=== PATIENT | female | born 1950 | race Caucasian/White ===

== ENCOUNTER 2018-09-11 21:45 | Observation (INO) | payer OTHER ==
[2018-09-11 23:14] VITALS: BMI 17.9
[2018-09-12] MEDS ORDERED: ACETAMINOPHEN 325 MG TABLET (FP) PO ONE (00:48)
[2018-09-12] MEDS ORDERED: rOPINIRole HCL 2 MG TABLET (FP) PO ONE (01:02)
[2018-09-12] MEDS ORDERED: rOPINIRole HCL 1 MG TABLET (FP) PO ONE (01:30)
--- NOTE | 2018-09-12 01:48 | PDOC ---
History of Present Illness - General Chief Complaint: Back Pain Stated Complaint: LOWER BACK PAIN Time Seen by Provider: 09/12/18 00:13 History Source: Patient Exam Limitations: No Limitations Past History - Past Medical History Allergies/Adverse Reactions: Allergies Allergy/AdvReac Type Severity Reaction Status Date / Time omeprazole AdvReac Verified 09/11/18 23:12 Penicillins AdvReac Verified 09/11/18 23:12 Home Medications: Ambulatory Orders Cyclobenzaprine HCl [Flexeril -] 10 mg PO QID 03/19/14 Dexlansoprazole [Dexilant -] 60 mg PO DAILY 03/19/14 Furosemide [Lasix -] 20 mg PO DAILY 03/19/14 Levothyroxine [Synthroid -] 75 mcg PO DAILY 03/19/14 Lorazepam [Ativan] 1 mg PO QID 03/19/14 Oxycodone HCl/Acetaminophen [Percocet 10-650 mg Tablet] 1 - 2 tab PO Q6H Ropinirole HCl [Requip Xl] 8 mg PO DAILY 03/19/14 Sertraline HCl [Zoloft] 200 mg PO DAILY 03/19/14 Unobtainable Home Med List 0 dose .ROUTE UTDICT 04/17/14 Bone Dexa 04/21/14 Ultrasound Of Kidneys 04/21/14 Vitamin D Level 04/21/14 Docusate Sodium [Colace -] 100 mg PO BID PRN #30 capsule 04/23/14 Heparin - 5,000 unit SQ BID 14 Days ml 04/23/14 Lidocaine 5% Patch [Lidoderm -] 1 patch TP DAILY #30 patch 04/23/14 Ranitidine [Zantac -] 150 mg PO BID #30 tablet 04/23/14 Sennosides [Senna -] 1 tab PO HS PRN #30 tablet 04/23/14 COPD: Yes GI Disorders: Yes (GERD) Thyroid Disease: Yes (HYPOTHYROIDISM) - Surgical History Orthopedic Surgery: Yes (L. Shoulder) - Suicide/Smoking/Psychosocial Hx Smoking Status: Yes Smoking History: Never smoked Have you smoked in the past 12 months: No Number of Cigarettes Smoked Daily: 20 Information on smoking cessation initiated: No 'Breaking Loose' booklet given: 04/17/14 Hx Alcohol Use: No Drug/Substance Use Hx: No *Physical Exam - Vital Signs Last Vital Signs Temp Pulse Resp BP Pulse Ox 98.6 F 62 16 158/79 93 L 09/11/18 22:00 09/11/18 22:00 09/11/18 22:00 09/11/18 22:00 09/11/18 22:00 - Physical Exam General Appearance: No: Apparent Distress HEENT: positive: KAYLENE, Other (No evidence of head trauma) Neck: negative: Rigid, Tender lateral, Tender midline Respiratory/Chest: positive: Lungs Clear. negative: Respiratory Distress Cardiovascular: positive: Regular Rate Gastrointestinal/Abdominal: positive: Soft. negative: Tender Musculoskeletal: negative: Muscle Spasm, Vertebral Tenderness Integumentary: positive: Normal Color Neurologic: positive: Fully Oriented, Alert, Normal Mood/Affect Moderate Sedation - Procedure Monitoring Vital Signs: Procedure Monitoring Vital Signs Temperature 98.6 F 09/11/18 22:00 Pulse Rate 62 09/11/18 22:00 Respiratory Rate 16 09/11/18 22:00 Blood Pressure 158/79 09/11/18 22:00 O2 Sat by Pulse Oximetry (%) 93 L 09/11/18 22:00 ED Treatment Course - RADIOLOGY Radiology Studies Ordered: Category Date Time Status HEAD CT WITHOUT CONTRAST [CT] Stat CT Scan 09/12/18 01:00 Taken PELVIS [RAD] Stat Radiology 09/12/18 00:57 Taken Medical Decision Making - Medical Decision Making 67 y/o F hx of hypothyroidism, COPD, MS, GERD, anxiety, depression, RA, osteoporosis, restless leg syndrome from [facility] , able to get around with roller and wheelchair presents s/p fall last night. Patient was just placed in independent living facility yesterday. Mentions she was walking around with her roller a lot, causing her feel tired. States while waiting in line for meds, because she was so tired, she fell back, predominantly landing on her tailbone. +headstrike as well. Denies LOC. Denies sob, cp, abd pain, n/v, dizziness. No evidence of trauma on exam, other than old abrasion to R knee CT head: IMPRESSION: 1. 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 Patient has fallen twice while in independent living facility and unsure if she can stay there (mentions the facility also does not want her there) Prior to this, patient was living in apartment States she has no family nearby to assist her either Will admit for further management/social work involvement 09/12/18 01:43 *DC/Admit/Observation/Transfer Diagnosis at time of Disposition: Fall Qualifiers: Encounter type: initial encounter Qualified Code(s): W19.XXXA - Unspecified fall, initial encounter - Discharge Dispostion Condition at time of disposition: Stable Decision to Admit order: Yes - Referrals - Patient Instructions - Post Discharge Activity
[2018-09-12] MEDS ORDERED: ACETAMINOPHEN 325 MG TABLET (FP) ONE ×2 (01:49→03:24)
--- NOTE | 2018-09-12 03:31 | PN ---
Teaching Attending Note Name of Resident: Regulo Palacios ATTENDING PHYSICIAN STATEMENT I saw and evaluated the patient. I reviewed the resident's note and discussed the case with the resident. I agree with the resident's findings and plan as documented. SUBJECTIVE: Patient is a 67 year old woman with PMH of hypothyroidism, COPD, MS, GERD, anxiety, penicillin allergy, depression, RA, left hip fracture, osteoporosis and restless leg syndrome who presents after a fall. She is from [facility] and is able to get around with roller and wheelchair. Patient was just placed in independent living facility yesterday. Mentions she was walking around with her roller a lot, causing her feel tired. States while waiting in line for meds, because she was so tired, she fell back, predominantly landing on her tailbone and hit her head as well. Denies LOC, SOB , chest pain, dizziness, nausea or vomiting. OBJECTIVE: Alert, cachectic and frail Vital Signs Period Temp Pulse Resp BP Sys/Cohen Pulse Ox Last 24 Hr 98.6 F 62 16 158/79 93 HEENT: No Jaundice, eye redness or discharge, PERRLA, EOMI. Normocephalic, atraumatic. External ears are normal and hearing is grossly intact. No nasal discharge. Neck: Supple, nontender. No palpable adenopathy or thyromegaly. No JVD Chest: Good effort. Clear to auscultation and percussion. Heart: Regular. No S3, rub or murmur Abdomen: Not distended, soft, nontender and no HSM. No rebound or guarding. Normoactive bowel sounds. Ext: Peripheral pulses intact. No leg edema. Skin: Warm and dry. No petechiae, rash or ecchymosis. Neuro: Alert. Oriented x3. CN 2-12 grossly intact. Sensation grossly intact in all four extremities and DTR are symmetric. Home Medications Medication Instructions Recorded Cyclobenzaprine HCl [Flexeril -] 10 mg PO QID 03/19/14 Dexlansoprazole [Dexilant -] 60 mg PO DAILY 03/19/14 Furosemide [Lasix -] 20 mg PO DAILY 03/19/14 Levothyroxine [Synthroid -] 75 mcg PO DAILY 03/19/14 Lorazepam [Ativan] 1 mg PO QID 03/19/14 Oxycodone HCl/Acetaminophen 1 - 2 tab PO Q6H 03/19/14 [Percocet 10-650 mg Tablet] Ropinirole HCl [Requip Xl] 8 mg PO DAILY 03/19/14 Sertraline HCl [Zoloft] 200 mg PO DAILY 03/19/14 Unobtainable Home Med List 0 dose .ROUTE UTDICT 04/17/14 Bone Dexa 04/21/14 Ultrasound Of Kidneys 04/21/14 Vitamin D Level 04/21/14 Docusate Sodium [Colace -] 100 mg PO BID PRN #30 capsule 04/23/14 Heparin - 5,000 unit SQ BID 14 Days ml 04/23/14 Lidocaine 5% Patch [Lidoderm -] 1 patch TP DAILY #30 patch 04/23/14 Ranitidine [Zantac -] 150 mg PO BID #30 tablet 04/23/14 Sennosides [Senna -] 1 tab PO HS PRN #30 tablet 04/23/14 ASSESSMENT AND PLAN: 1. Recurrent falls and Weakness - No acute pathology on head CT scan and official report of hip xray is pending. Mobility and gait issues likely a consequence of her multiple comorbid problems. Needs intense Rehab and possibly will do better with at a higher level of care SNF. Will check EKG, CBC, Urinalysis, CMP and all electrolytes. 2. Undernourished and Underweight - Needs intense nutritional support - a high calorie, high protein diet with supplements. Consult documentation specialist. 3. DVT prophylaxis - Lovenox 40 mg SQ q 24 hours. 4. Advance directives - Full code
--- NOTE | 2018-09-12 04:00 | HP ---
CHIEF COMPLAINT: PCP: Kelly Fay HISTORY OF PRESENT ILLNESS: 67 yo F w/ PMH of hypothyroidism, COPD, MS, GERD, anxiety, anorexia?, penicillin allergy, depression, RA, left hip fracture, osteoporosis and restless leg syndrome who presents after a mechanical fall x2. She is from [facility] and is able to get around with roller and wheelchair. Patient was just placed in independent living facility yesterday. The first fall occurred last night while she was sleeping in her wheelchair. She woke up on the floor but does not know how she fell. Was not in any pain so she didn't report it. The second fall occurred bec she was walking around with her roller a lot, causing her feel tired. States while waiting in line for meds, because she was so tired, she fell back, predominantly landing on her tailbone and hit her head as well. Denies LOC, fevers, SOB, chest pain, abd pain, dizziness, n/v/d, urinary sxs. 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 Patient unsure if she can stay in independent living facility (mentions the facility also does not want her there) Prior to this, patient was living in apartment States she has no family nearby to assist her either ER course was notable for: (1) CT head No acute intracranial process (2)X-ray pelvis: Difficult to see well; patient had prior L hip fracture; appears unchanged from prior (3) tylenol, requip Recent Travel: PAST MEDICAL HISTORY: Neuro: Dickoff PAST SURGICAL HISTORY: Social History: Smoking: >40 years Alcohol: Drugs: marijuana in the past, denies IV use Family History: Allergies omeprazole Adverse Reaction (Verified 09/11/18 23:12) Penicillins Adverse Reaction (Verified 09/11/18 23:12) HOME MEDICATIONS: Home Medications Medication Instructions Recorded Cyclobenzaprine HCl [Flexeril -] 10 mg PO QID 03/19/14 Dexlansoprazole [Dexilant -] 60 mg PO DAILY 03/19/14 Furosemide [Lasix -] 20 mg PO DAILY 03/19/14 Levothyroxine [Synthroid -] 75 mcg PO DAILY 03/19/14 Lorazepam [Ativan] 1 mg PO QID 03/19/14 Oxycodone HCl/Acetaminophen 1 - 2 tab PO Q6H 03/19/14 [Percocet 10-650 mg Tablet] Ropinirole HCl [Requip Xl] 8 mg PO DAILY 03/19/14 Sertraline HCl [Zoloft] 200 mg PO DAILY 03/19/14 Unobtainable Home Med List 0 dose .ROUTE UTDICT 04/17/14 Bone Dexa 04/21/14 Ultrasound Of Kidneys 04/21/14 Vitamin D Level 04/21/14 Docusate Sodium [Colace -] 100 mg PO BID PRN #30 capsule 04/23/14 Heparin - 5,000 unit SQ BID 14 Days ml 04/23/14 Lidocaine 5% Patch [Lidoderm -] 1 patch TP DAILY #30 patch 04/23/14 Ranitidine [Zantac -] 150 mg PO BID #30 tablet 04/23/14 Sennosides [Senna -] 1 tab PO HS PRN #30 tablet 04/23/14 REVIEW OF SYSTEMS as per hpi PHYSICAL EXAMINATION Vital Signs - 24 hr 09/11/18 22:00 Temperature 98.6 F Pulse Rate 62 Respiratory 16 Rate Blood Pressure 158/79 O2 Sat by Pulse 93 L Oximetry (%) GENERAL: AOX3 NAD . cachectic and frail. poor dentition HEAD: NCAT EYES: sclera anicteric, conjunctiva clear. No lid lag. EARS, NOSE, THROAT: nares patent, oropharynx clear without exudates. dry mucous membranes. NECK: Normal range of motion, supple without lymphadenopathy, JVD, or masses. LUNGS: CTAB HEART: RRR, normal S1 and S2 without m/r/g ABDOMEN: Soft, NTND, normoactive bowel sounds, no guarding, no rebound, no masses. MUSCULOSKELETAL: Normal range of motion at all joints. No bony deformities or tenderness. UPPER EXTREMITIES: 2+ pulses, warm, well-perfused. No cyanosis. No clubbing. No peripheral edema. LLE limited ROM due to pain LOWER EXTREMITIES: 2+ pulses, warm, well-perfused. No calf tenderness. No peripheral edema. old abrasion to R knee. LLE limited ROM due to pain, unable to asses strength, LE length appear equal b/l NEUROLOGICAL: Cranial nerves II-XII intact. Normal speech. Sensation grossly intact in all four extremities PSYCHIATRIC: Cooperative. Good eye contact. Appropriate mood and affect. SKIN: Warm, dry, normal turgor, no rashes or lesions noted, normal capillary refill. ASSESSMENT/PLAN: 67 yo F w/ PMH of hypothyroidism, COPD, MS, GERD, anxiety, anorexia?, penicillin allergy, depression, RA, left hip fracture, osteoporosis and restless leg syndrome who presents after a mechanical fall x2. Recurrent falls and Weakness - No acute pathology on head CT scan. f/u official report of hip xray Needs intense Rehab and possibly will do better with at a higher level of care SNF. SW consult Will check EKG, CBC, Urinalysis, CMP and all electrolytes. pain ctl, c/w home dose percocet 10-650 fall precautions PT eval Undernourished and Underweight - cachectic and frail, BMI 17.9 Consult cheese sprayer. HCM c/w home dose meds will hold off on ativan and requip until we can med rec to confirm dosages FEN no IVF replete prn regular diet DVT prophylaxis - SQH Full code Dispo obs PT eval SW consult Visit type - Emergency Visit Emergency Visit: Yes ED Registration Date: 09/12/18 Care time: The patient presented to the Emergency Department on the above date and was hospitalized for further evaluation of their emergent condition. - New Patient This patient is new to me today: Yes Date on this admission: 09/12/18 - Critical Care Critical Care patient: No
[2018-09-12] MEDS ORDERED: ACETAMINOPHEN 325 MG TABLET (FP) PO PRN ×2 (05:13→06:07)
[2018-09-12] MEDS: HEPARIN NA (PORCINE) 5,000 UNITS/ML 1ML VIAL SQ SCH ×2 (06:05→14:10)
[2018-09-12 06:12] LABS: EOS % 3.9 % (0-4.5); HEMOGLOBIN 12.9 GM/dL (10.7-15.3); LYMPH % 16.9 % (8-40); MCH 30.3 pg (25.7-33.7); MCHC 33.2 g/dl (32.0-36.0); MEAN CELL VOLUME 91.2 fl (80-96); MEAN PLT VOLUME 7.6 fl (7.5-11.1); MONO % 5.8 % (3.8-10.2); NEUT % 72.4 % (42.8-82.8); PLATELET COUNT 260 K/MM3 (134-434); RBC 4.28 M/mm3 (3.60-5.2); RDW 13.4 % (11.6-15.6)
[2018-09-12 06:29] LABS: ALBUMIN 3.7 g/dl (3.4-5.0); ALK PHOS 92 U/L (45-117); ANION GAP 6 MMOL/L (8-16); BILIRUBIN,TOTAL 0.4 mg/dL (0.2-1); BLOOD UREA NITROGEN 11 mg/dL (7-18); CALCIUM 8.6 mg/dL (8.5-10.1); CHLORIDE 101 mmol/L (98-107); CO2 29 mmol/L (21-32); CREATININE 0.7 mg/dL (0.55-1.3); GLUCOSE,RANDOM 81 mg/dL (74-106); PHOSPHOROUS 3.3 mg/dL (2.5-4.9); POTASSIUM 4.2 mmol/L (3.5-5.1); SGOT/AST 23 U/L (15-37); SGPT/ALT 20 U/L (13-61); SODIUM 136 mmol/L (136-145); TOT PROT 7.4 g/dl (6.4-8.2)
[2018-09-12] MEDS ORDERED: LEVOTHYROXINE NA 125 MCG TABLET (FP) PO SCH (07:00)
--- NOTE | 2018-09-12 09:39 | CONSULT ---
Consult - text type - Consultation Consultation Note: FULL CONSULT DICTATED IMP: NO ACUTE ORTHOPEDIC CONDITION PLAN: DC WHEN MEDICALLY OK
[2018-09-12] MEDS ORDERED: oxyCODONE HCL 5 MG TABLET ONE ×2 (09:43→16:16)
[2018-09-12] MEDS: oxyCODONE HCL 5 MG TABLET PO PRN ×2 (09:52→16:21)
[2018-09-12] MEDS ORDERED: PANTOPRAZOLE 40 MG TABLET (FP) PO SCH (10:00)
[2018-09-12] MEDS ORDERED: BUDESONIDE/FORMETEROL FUMARATE 80/4.5 mcg INHALER IH SCH (10:00)
[2018-09-12] MEDS ORDERED: NADOLOL 40 MG TABLET (FP) PO SCH (10:00)
[2018-09-12] MEDS ORDERED: ASPIRIN 81 MG CHEWABLE TABLETS PO SCH (10:00)
[2018-09-12] MEDS ORDERED: FUROSEMIDE 20 MG TABLET (FP) PO SCH (10:00)
--- NOTE | 2018-09-12 10:15 | CONS ---
DATE OF CONSULTATION: 09/12/2018 ORTHOPEDIC CONSULTATION AT [facility]: Patient is a 67-year-old female, well known to my service. I have seen her multiple times in our office with severe DJD and dysplastic left hip with marked shortening of the left lower extremity. Patient has been offered surgery multiple times in the past and has refused. Patient has been offered shoe lifts to equalize out the limb length discrepancy, but has refused. She also suffers from severe degenerative changes of her cervical spine. Patient was presented today to the emergency room status post fall. When asked if any specific place hurts more than before, she gives an evasive answer and does not really specify any specific issues. PHYSICAL EXAMINATION: She does still have the significant limb length discrepancy with marked decreased motion of her left hip. Otherwise, neurovascularly intact. No swelling, ecchymosis, or edema. No point tenderness in any location. She does have decreased motion at all points of her cervical spine, but no active neurological deficit of her lower extremities secondary to the condition. IMAGING: X-rays which were reviewed of her pelvis did not show any acute pathology. They do show the high-riding femoral head, which is flat and dysplastic, and a dysplastic arthritic acetabulum. IMPRESSION: No acute orthopedic conditions. Patient can be discharged whenever medically okay. RYLAN FLEMING M.D. [id number]
--- NOTE | 2018-09-12 12:00 | EKG ---
Test Reason : Blood Pressure : / mmHG Vent. 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
--- NOTE | 2018-09-12 14:23 | PN ---
Physical Exam: SUBJECTIVE: Patient seen and examined this AM. She says that I do not have time to hear all of her complaints. She initially says she does not know why she is in the hospital but does endorse a fall. She states that she was transferred to an independent living facility and was required to walk much more than she is able. She endorses that her fall was due to being too tired to hold herself up with her walker. She is requesting a social service coordinator and a patient rights advocate. OBJECTIVE: Vital Signs Period Temp Pulse Resp BP Sys/Cohen Pulse Ox Last 24 Hr 98.1 F-98.6 F 57-62 16-18 149-158/70-79 93-95 GENERAL: A&O, no acute distress HEAD: Normocephalic, atraumatic. EYES: PERRL, no scleral icterus EARS, NOSE, THROAT: oropharynx clear without exudates. Moist mucous membranes. NECK: supple without lymphadenopathy LUNGS: CTA b/l, no crackles or wheezes HEART: Regular rate and rhythm, normal S1 and S2 without murmur ABDOMEN: Soft, nontender to palpation, normoactive bowel sounds MUSCULOSKELETAL: No bony deformities or tenderness. EXTREMITIES: 2+ pulses, warm, well-perfused. No peripheral edema. NEUROLOGICAL: Cranial nerves II-XII grossly intact. Normal speech. PSYCHIATRIC: Somewhat uncooperative. Pt with numerous complaints and accusations about other providers during interview. SKIN: Stage I decubitus ulcer 1X1 cm Laboratory Results - last 24 hr 09/12/18 09/12/18 06:00 06:00 WBC 7.0 RBC 4.28 Hgb 12.9 Hct 39.0 D MCV 91.2 MCH 30.3 MCHC 33.2 RDW 13.4 Plt Count 260 MPV 7.6 D Absolute Neuts (auto) 5.1 Neutrophils % 72.4 D Lymphocytes % 16.9 D Monocytes % 5.8 Eosinophils % 3.9 Basophils % 1.0 Nucleated RBC % 0 Sodium 136 Potassium 4.2 Chloride 101 Carbon Dioxide 29 Anion Gap 6 L BUN 11 Creatinine 0.7 Creat Clearance w eGFR > 60 Random Glucose 81 Calcium 8.6 Phosphorus 3.3 Magnesium 2.0 Total Bilirubin 0.4 AST 23 ALT 20 Alkaline Phosphatase 92 Total Protein 7.4 Albumin 3.7 Active Medications Generic Name Dose Route Start Last Admin Trade Name Freq PRN Reason Stop Dose Admin Acetaminophen 650 mg 01/02/19 06:07 Tylenol - PO Q6H PRN PAIN LEVEL 6-10 Aspirin 81 mg 09/12/18 10:00 09/12/18 09:50 Asa - PO 81 mg DAILY RAMOS Administration Budesonide/Formoterol Fumarate 2 puff 09/12/18 10:00 09/12/18 09:42 Symbicort 80/4.5mcg - IH 2 puff BID RAMOS Administration Furosemide 10 mg 09/12/18 10:00 09/12/18 09:42 Lasix - PO 10 mg DAILY RAMOS Administration Heparin Sodium (Porcine) 5,000 unit 09/12/18 06:00 09/12/18 06:05 Heparin - SQ 5,000 unit TID RAMOS Administration Levothyroxine Sodium 125 mcg 09/12/18 07:00 Synthroid - PO DAILY@0700 RAMOS Nadolol 40 mg 09/12/18 10:00 09/12/18 09:42 Corgard - PO 40 mg DAILY RAMOS Administration Oxycodone HCl 10 mg 09/12/18 06:07 09/12/18 09:52 Roxicodone - PO 10 mg Q6H PRN Administration PAIN LEVEL 6-10 Pantoprazole Sodium 40 mg 09/12/18 10:00 09/12/18 09:42 Protonix - PO 40 mg DAILY RAMOS Administration ASSESSMENT/PLAN: 67 yo F w/ PMH of hypothyroidism, COPD, MS, GERD, anxiety, anorexia?, penicillin allergy, depression, RA, left hip fracture, osteoporosis and restless leg syndrome who admitted after a mechanical fall x2. Multiple Falls -Pt states she is likely unable to tolerate assisted living as she is unable to ambulate as much as needed -Pt will need to be seen by PT and possible SNF placement, Currently refusing PT evaluation Hypothyroid -Continue home synthroid 125 mcg PO Daily COPD -Continue home symbicort 80/4.5 GERD -Protonix 40 mg PO Daily Anxiety/Depression -Continue home Requip -Continue home Ativan 1mg PO Q6 DVT Prophylaxis -Heparin 5000 units SQ TID FEN -Fluids: none -Electrolytes: No electrolyte abnormalities, BMP in AM -Nutrition: Regular Diet Disposition D/C planning pending social work and placement, though refusing PT Visit type - Emergency Visit Emergency Visit: Yes ED Registration Date: 09/12/18 Care time: The patient presented to the Emergency Department on the above date and was hospitalized for further evaluation of their emergent condition. - New Patient This patient is new to me today: Yes Date on this admission: 09/12/18 - Critical Care Critical Care patient: No
[2018-09-12] MEDS ORDERED: LORazepam 1 MG TABLET PO PRN (15:17)
--- NOTE | 2018-09-12 15:42 | DS ---
Physical Exam: SUBJECTIVE: Patient seen and examined this AM. She says that I do not have time to hear all of her complaints. She initially says she does not know why she is in the hospital but does endorse a fall. She states that she was transferred to an independent living facility and was required to walk much more than she is able. She endorses that her fall was due to being too tired to hold herself up with her walker. She is requesting a social services analyst and a patient rights advocate. OBJECTIVE: Vital Signs Period Temp Pulse Resp BP Sys/Cohen Pulse Ox Last 24 Hr 98.1 F-98.6 F 57-79 16-18 145-158/70-79 93-95 PHYSICAL EXAM GENERAL: A&O, no acute distress HEAD: Normocephalic, atraumatic. EYES: PERRL, no scleral icterus EARS, NOSE, THROAT: oropharynx clear without exudates. Moist mucous membranes. NECK: supple without lymphadenopathy LUNGS: CTA b/l, no crackles or wheezes HEART: Regular rate and rhythm, normal S1 and S2 without murmur ABDOMEN: Soft, nontender to palpation, normoactive bowel sounds MUSCULOSKELETAL: No bony deformities or tenderness. EXTREMITIES: 2+ pulses, warm, well-perfused. No peripheral edema. NEUROLOGICAL: Cranial nerves II-XII grossly intact. Normal speech. PSYCHIATRIC: Somewhat uncooperative. Pt with numerous complaints and accusations about other providers during interview. SKIN: Stage I decubitus ulcer 1X1 cm LABS Laboratory Results - last 24 hr 09/12/18 09/12/18 06:00 06:00 WBC 7.0 RBC 4.28 Hgb 12.9 Hct 39.0 D MCV 91.2 MCH 30.3 MCHC 33.2 RDW 13.4 Plt Count 260 MPV 7.6 D Absolute Neuts (auto) 5.1 Neutrophils % 72.4 D Lymphocytes % 16.9 D Monocytes % 5.8 Eosinophils % 3.9 Basophils % 1.0 Nucleated RBC % 0 Sodium 136 Potassium 4.2 Chloride 101 Carbon Dioxide 29 Anion Gap 6 L BUN 11 Creatinine 0.7 Creat Clearance w eGFR > 60 Random Glucose 81 Calcium 8.6 Phosphorus 3.3 Magnesium 2.0 Total Bilirubin 0.4 AST 23 ALT 20 Alkaline Phosphatase 92 Total Protein 7.4 Albumin 3.7 HOSPITAL COURSE: Date of Admission:09/12/18 Date of Discharge: 09/12/18 HPI on admission: 67 yo F w/ PMH of hypothyroidism, COPD, MS, GERD, anxiety, anorexia?, penicillin allergy, depression, RA, left hip fracture, osteoporosis and restless leg syndrome who presents after a mechanical fall x2. She is from [facility] and is able to get around with roller and wheelchair. Patient was just placed in independent living facility yesterday. The first fall occurred last night while she was sleeping in her wheelchair. She woke up on the floor but does not know how she fell. Was not in any pain so she didn't report it. The second fall occurred bec she was walking around with her roller a lot, causing her feel tired. States while waiting in line for meds, because she was so tired, she fell back, predominantly landing on her tailbone and hit her head as well. Denies LOC, fevers, SOB, chest pain, abd pain, dizziness, n/v/d, urinary sxs. 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 She was evaluated by PT and walked over 50 feet. She was deemed medically safe for discharge with Physical therapy follow up at her assisted living facility. Minutes to complete discharge: 35 Discharge Summary Reason For Visit: FALL Current Active Problems Fall (Acute) Condition: Stable - Instructions Diet, Activity, Other Instructions: You were admitted following multiple falls. Imaging was done and you were not found to have any fractures or bleeding. You were deemed medically safe to return back to assisted living with further physical therapy there. You should continue all of your home medications as they were prescribed prior to this hospital visit. You should be seen by your doctor within 1 week of discharge from the hospital. Disposition: HOME - Home Medications Comprehensive Discharge Medication List: Ambulatory Orders Dexlansoprazole [Dexilant -] 60 mg PO DAILY PRN 03/19/14 Furosemide [Lasix -] 10 mg PO DAILY 03/19/14 Levothyroxine [Synthroid -] 125 mcg PO AC 03/19/14 Ropinirole HCl [Requip Xl] 8 mg PO HS 03/19/14 Aspirin [ASA -] 81 mg PO DAILY 09/12/18 Bacitracin - [Bacitracin Topical Ointment -] 1 applic TP BID 09/12/18 Fluticasone/Salmeterol [Advair 250-50 Diskus] 1 each IH BID 09/12/18 Lorazepam [Ativan] 1 mg PO Q6H PRN 09/12/18 Nadolol [Corgard -] 20 mg PO DAILY 09/12/18 Oxycodone HCl/Acetaminophen [Oxycodone-Acetaminophen 10-325] 1 tab PO Q6H PRN Ropinirole HCl [Requip -] 2 mg PO QID 09/12/18 This patient is new to me today: Yes Date on this admission: 09/12/18 Emergency Visit: Yes ED Registration Date: 09/12/18 Care time: The patient presented to the Emergency Department on the above date and was hospitalized for further evaluation of their emergent condition. Critical Care patient: No - Discharge Referral Referred to [facility] Med P.C.: No
[2018-09-12] MEDS ORDERED: rOPINIRole HCL 2 MG TABLET (FP) PO SCH (18:00)
[2018-09-12 18:30] VITALS: BP 122/69; PULSE 81; TEMP 98.1
--- NOTE | 2018-09-12 18:30 | PN ---
Teaching Attending Note Name of Resident: Darci Lawton ATTENDING PHYSICIAN STATEMENT I saw and evaluated the patient. I reviewed the resident's note and discussed the case with the resident. I agree with the resident's findings and plan as documented. SUBJECTIVE: Feels okay - complains of poor ambulation .Denies any pain or discomfort. She related mechanical fall and denies any preceeding chest pain/ palpitations/lightheadedness. She denies HI or LOC. No dysuria/hematuria. OBJECTIVE: Afebrile/hemodynamically Stable. Last Vital Signs Temp Pulse Resp BP Pulse Ox 98.3 F 79 18 145/77 95 09/12/18 14:45 09/12/18 14:45 09/12/18 14:45 09/12/18 14:45 09/12/18 14:45 HEENT - Atraumatic, Normocephalic Heart - S1, S2, RRR Lungs - clear to auscultation, no crackles/wheeze. Abdomen - Soft, non-tender. Bowel Sounds normal. Extremities - no edema. Neuro - AAO x 3. Tone/Power normal all 4 extremities. Small Left Stage 2 decubitus ulcer Laboratory Results - last 24 hr 09/12/18 09/12/18 06:00 06:00 WBC 7.0 RBC 4.28 Hgb 12.9 Hct 39.0 D MCV 91.2 MCH 30.3 MCHC 33.2 RDW 13.4 Plt Count 260 MPV 7.6 D Absolute Neuts (auto) 5.1 Neutrophils % 72.4 D Lymphocytes % 16.9 D Monocytes % 5.8 Eosinophils % 3.9 Basophils % 1.0 Nucleated RBC % 0 Sodium 136 Potassium 4.2 Chloride 101 Carbon Dioxide 29 Anion Gap 6 L BUN 11 Creatinine 0.7 Creat Clearance w eGFR > 60 Random Glucose 81 Calcium 8.6 Phosphorus 3.3 Magnesium 2.0 Total Bilirubin 0.4 AST 23 ALT 20 Alkaline Phosphatase 92 Total Protein 7.4 Albumin 3.7 ASSESSMENT AND PLAN: 67 year old female with COPD, GERD, Anxiety, Hypothyrodism, Depression/Anxiety, RA, Osteoporosis, RLS, MS, admitted after 2 mechanical falls at [facility]. 1. Ambulatory Dysfunction CT Head negative for acute intracranial findings. XRay Pelvis - clnically deformed L hip with lateral subluxation Evaluated by Ortho - no acute intervention indicated. Seen by PT and able to ambulate with walker. Clinically Stable for discharge back to facility with ongoing PT. 2. Malnutrition - for protein supplementation at facility. 3. Hypothyroidism -Continue Levothyroxine 4. Depression/Anxiety - continue Cyclobenzaprine, Sertraline 5. RLS - Continue Ripinirole. 6. GERD - Continue PPI and H2 paul. Medically stable for discharge back to living facility for ongoing PT.
[2018-09-12] MEDS ORDERED: BACITRACIN 15 GM TUBE TOPICAL OINTMENT TP SCH (22:00)
--- NOTE | 2018-09-16 17:01 | EKG ---
Test Reason : Blood Pressure : / mmHG Vent. 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
== END 2018-09-12 18:58 ==
LOC: JER 21:45 → JERBED 09-12 03:05
PROVIDERS: ADMIT Internal Medicine
PROC: 3E0F7GC Introduction of Other Therapeutic Substance into Respiratory Tract, Via Natural or Artificial Opening (ICD-10-PCS; principal; 2018-09-12)
DX: R29.6 Repeated falls (principal); R53.1 Weakness; R63.6 Underweight; E46 Unspecified protein-calorie malnutrition; Z68.1 Body mass index [BMI] 19.9 or less, adult; E03.9 Hypothyroidism, unspecified; G35 Multiple sclerosis; K21.9 Gastro-esophageal reflux disease without esophagitis; F32.9 Major depressive disorder, single episode, unspecified; F41.9 Anxiety disorder, unspecified; M06.9 Rheumatoid arthritis, unspecified; M81.0 Age-related osteoporosis without current pathological fracture; G25.81 Restless legs syndrome; M19.90 Unspecified osteoarthritis, unspecified site; Q65.89 Other specified congenital deformities of hip; Z88.0 Allergy status to penicillin; Z79.01 Long term (current) use of anticoagulants
CPT/HCPCS: 36415; 70450-TC; 72170-TC-FY; 80053; 83735; 84100; 85025; 93005; 93010; 94640; 97116-GP; 97161-GP; 99284-25; G0378; J1644

== ENCOUNTER 2018-10-26 12:47 | Emergency (ER) | payer OTHER ==
--- NOTE | 2018-10-26 13:22 | PDOC ---
History of Present Illness - General Chief Complaint: Injury Stated Complaint: FALL / LT WRIST PAIN Time Seen by Provider: 10/26/18 13:15 History Source: Patient Exam Limitations: No Limitations - History of Present Illness Initial Comments: 10/26/18 13:24 HPI: Pt arrives via EMS with c/o left hand and left hip pain after falling between her wheelchair and her bed in the assisted living while sleeping this morning. She is found in a wheelchair AAOx3 with pain she says is a 10/10 but is found dozing off frequently. she states she received pain medications prior to arrival at the facility Chief Compliant: recent fall with left hand, left hip, pain PMH: MS, psychiatric FH: Pt has not recently traveled outside the country in the last 30 days. Pt has not been in contact with people who have traveled out of the country, in contact with people who have been ill with fever, n, v, d. SH: smoking use: NONE illicit drug use: NONE alcohol use: NONE employment/educational status: resident [facility] sexual history: PSH: Home med use noted on NOV Allergies:noted above Immunizations: PCP: Dr. Fay 10/26/18 15:11 Past History - Past Medical History Allergies/Adverse Reactions: Allergies Allergy/AdvReac Type Severity Reaction Status Date / Time omeprazole AdvReac Verified 10/26/18 13:03 Penicillins AdvReac Verified 10/26/18 13:03 Home Medications: Ambulatory Orders Dexlansoprazole [Dexilant -] 60 mg PO DAILY PRN 03/19/14 Furosemide [Lasix -] 10 mg PO DAILY 03/19/14 Levothyroxine [Synthroid -] 150 mcg PO AC 03/19/14 Ropinirole HCl [Requip Xl] 8 mg PO AC 03/19/14 Aspirin [ASA -] 81 mg PO DAILY 09/12/18 Bacitracin - [Bacitracin Topical Ointment -] 1 applic TP BID 09/12/18 Fluticasone/Salmeterol [Advair 250-50 Diskus] 1 each IH BID 09/12/18 Lorazepam [Ativan] 1 mg PO Q6H PRN 09/12/18 Nadolol [Corgard -] 40 mg PO DAILY 09/12/18 Oxycodone HCl/Acetaminophen [Oxycodone-Acetaminophen 10-325] 1 tab PO Q6H PRN Ropinirole HCl [Requip -] 2 mg PO QID 09/12/18 Albuterol Sulfate Inhaler - [Ventolin Hfa Inhaler -] 1 - 2 inh PO Q4H 10/26/18 Ammonium Lactate Cream [Lac-Hydrin 12% *Cream*] 1 applic TP DAILY 10/26/18 Diphenhydramine HCl [Benadryl -] 25 mg PO Q8H PRN 10/26/18 Docusate Sodium [Colace -] 300 mg PO HS 10/26/18 Sertraline HCl [Zoloft -] 50 mg PO DAILY 10/26/18 COPD: Yes GI Disorders: Yes (GERD) Thyroid Disease: Yes (HYPOTHYROIDISM) - Surgical History Orthopedic Surgery: Yes (L. Shoulder) - Immunization History Immunization Up to Date: Yes - Suicide/Smoking/Psychosocial Hx Smoking Status: Yes Smoking History: Never smoked Have you smoked in the past 12 months: No Number of Cigarettes Smoked Daily: 20 'Breaking Loose' booklet given: 04/17/14 Hx Alcohol Use: No Drug/Substance Use Hx: No Review of Systems - Review of Systems Able to Perform ROS?: Yes Comments:: 10/26/18 15:15 General statement: Hematology: neg history of bleeding/blood thinners Skin: Neg for lesions, rash, bruising. HEENT: Neg symptoms Respiratory: Neg SOB or difficulty in breathing Cardiac: Neg chest pain GI: Neg pain, n/v : Neg problems on voiding MS: Neg for joint pain/stiffness, no edema that is new, she has chronic Neuro: Neg for LOC, weakness, that is new, she has chronic pain, weakness and stiffiness form her MS dx Endocrine: Neg for excess thirst/hunger, cold/heat intolerance, excess sweating Allergies: + for allergies *Physical Exam - Physical Exam Comments: 10/26/18 15:18 General Appearance: This well appearing 67 yr old female V/S: hemodynamically stable, afebrile Skin: WNL of pt's skin color, no signs of pallor, mottling, cyanosis Head:symmetrical Eyes: EOM's intact, PERRLA Ears: denies pain Nose: patent Throat: lips, teeth, gums, tongue, buccal mucos pink and moist Lungs: Chest symmetry equal. Cap refill <3 seconds. Lung sounds clear Cardiac: PMI at R 4MCL space, pos S1 and S2, regular rate. Abdomen: Soft, round, nontender : Not observed Muscularskeletal: Is in a wheelchair no edema +PMS, no acute injury seen or crepitus felt Neuro: AAOx3, cognitively intact, speech clear and appropriate. Medical Decision Making - Medical Decision Making 10/26/18 15:19 Pt is seen in ER with recent fall in intermediate. She is c/o left hand towards the 4-5 metacarpals and left hip, although she is sitting in a wheelchair comfortable and left hand with full ROM. She had recieved meds at facility prior to arrival here . hand xray and hip xray ordered. 10/26/18 15:23 xrays neg for acute fx, will discharge back to the home *DC/Admit/Observation/Transfer Diagnosis at time of Disposition: Hand pain, left - Discharge Dispostion Disposition: HOME Condition at time of disposition: Stable Decision to Admit order: No - Referrals Referrals: Antonio Fay MD [Primary Care Provider] - - Patient Instructions Printed Discharge Instructions: How to Prevent Falls Additional Instructions: Discharge instructions 1. Please follow up with your primary physician within the next few days and explain that you have been seen here in the Emergency Room. 2. If you experience any worsening of symptoms, please return to the ER 3. Rest, ice and tylenol for pain only 4. Drink plenty of water - Post Discharge Activity
[2018-10-26 13:40] VITALS: BP 98/56; PULSE 62; TEMP 98.1; BMI 20.1
== END 2018-10-26 15:51 ==
LOC: JERFT 12:47 → JER 12:47 → JERFT 15:51
DX: M79.642 Pain in left hand (principal); M25.552 Pain in left hip; J44.9 Chronic obstructive pulmonary disease, unspecified; K21.9 Gastro-esophageal reflux disease without esophagitis; E03.9 Hypothyroidism, unspecified; W18.39XA Other fall on same level, initial encounter; Y93.89 Activity, other specified; Y92.122 Bedroom in nursing home as the place of occurrence of the external cause; Y99.8 Other external cause status
CPT/HCPCS: 73130-TC-LT-FY; 73502-TC-LT-FY; 99281-25

== ENCOUNTER 2018-10-27 08:07 | Emergency (ER) | payer OTHER ==
[2018-10-27 08:16] VITALS: BP 127/83; PULSE 66; TEMP 97.4; BMI 16.0
--- NOTE | 2018-10-27 08:27 | PDOC ---
History of Present Illness - General Stated Complaint: FALL - History of Present Illness Initial Comments: 10/27/18 08:37 67 yo female with PMH Hypothyroid, Restless leg syndrome, Anxiety/Depression, chronic left hip pain, RA and numerous mechanical falls presents today after a mechanical fall out of her wheelchair at her assisted living facility. Of note she had a very similar fall yesterday, was seen in the ED. imaged without acute fracture or bleed and discharged back to [facility]. She states that today she fell out of her wheelchair and hit her head. She is unable to tell me what else she may have landed on but does endorse hitting her head. She states that her left wrist is still hurting from yesterday and is possibly worse today but is unsure if she reinjured it today. She also endorses left hip pain which is worse than her baseline. Past History - Travel Traveled outside of the country in the last 30 days: No - Past Medical History Allergies/Adverse Reactions: Allergies Allergy/AdvReac Type Severity Reaction Status Date / Time omeprazole AdvReac Verified 10/27/18 08:12 Penicillins AdvReac Verified 10/27/18 08:12 Home Medications: Ambulatory Orders Dexlansoprazole [Dexilant -] 60 mg PO DAILY PRN 03/19/14 Furosemide [Lasix -] 10 mg PO DAILY 03/19/14 Levothyroxine [Synthroid -] 150 mcg PO AC 03/19/14 Ropinirole HCl [Requip Xl] 8 mg PO AC 03/19/14 Aspirin [ASA -] 81 mg PO DAILY 09/12/18 Bacitracin - [Bacitracin Topical Ointment -] 1 applic TP BID 09/12/18 Fluticasone/Salmeterol [Advair 250-50 Diskus] 1 each IH BID 09/12/18 Lorazepam [Ativan] 1 mg PO Q6H PRN 09/12/18 Nadolol [Corgard -] 40 mg PO DAILY 09/12/18 Oxycodone HCl/Acetaminophen [Oxycodone-Acetaminophen 10-325] 1 tab PO Q6H PRN Ropinirole HCl [Requip -] 2 mg PO QID 09/12/18 Albuterol Sulfate Inhaler - [Ventolin Hfa Inhaler -] 1 - 2 inh PO Q4H 10/26/18 Ammonium Lactate Cream [Lac-Hydrin 12% *Cream*] 1 applic TP DAILY 10/26/18 Diphenhydramine HCl [Benadryl -] 25 mg PO Q8H PRN 10/26/18 Docusate Sodium [Colace -] 300 mg PO HS 10/26/18 Sertraline HCl [Zoloft -] 50 mg PO DAILY 10/26/18 COPD: Yes GI Disorders: Yes (GERD) Thyroid Disease: Yes (HYPOTHYROIDISM) - Surgical History Orthopedic Surgery: Yes (L. Shoulder) - Immunization History Immunization Up to Date: Yes - Suicide/Smoking/Psychosocial Hx Smoking Status: Yes Smoking History: Current every day smoker Have you smoked in the past 12 months: Yes Number of Cigarettes Smoked Daily: 4 Information on smoking cessation initiated: No 'Breaking Loose' booklet given: 04/17/14 Hx Alcohol Use: No Drug/Substance Use Hx: No Review of Systems - Review of Systems Able to Perform ROS?: Yes Constitutional: No: Chills, Fever, Malaise HEENTM: No: Blurred Vision Respiratory: No: Cough, Shortness of Breath, Wheezing Cardiac (ROS): No: Chest Pain, Edema, Palpitations, Syncope ABD/GI: No: Nausea, Vomiting : Yes: Other (chronic incontinence "like [place]"). No: Burning, Dysuria , Discharge, Urgency Musculoskeletal: Yes: Back Pain, Joint Pain, Neck Pain *Physical Exam - Vital Signs Last Vital Signs Temp Pulse Resp BP Pulse Ox 97.4 F L 66 18 127/83 99 10/27/18 08:12 10/27/18 08:12 10/27/18 08:12 10/27/18 08:12 10/27/18 08:12 - Physical Exam Comments: 10/27/18 08:45 GEN: A&O no acute distress HEENT: PERRL, EOMI, moist mucus membranes, very poor dentition NECK: supple, no lymphadenopathy, no point tenderness along C-spine HEART: RRR, no murmurs noted LUNGS: CTA b/l, no wheezes ABDOMEN: Soft nontender, concave EXTREMITIES: 2+ pulses, no point tenderness with the exception of pain in left hip Moderate Sedation - Procedure Monitoring Vital Signs: Procedure Monitoring Vital Signs Temperature 97.4 F L 10/27/18 08:12 Pulse Rate 66 10/27/18 08:12 Respiratory Rate 18 10/27/18 08:12 Blood Pressure 127/83 10/27/18 08:12 O2 Sat by Pulse Oximetry (%) 99 10/27/18 08:12 Medical Decision Making - Medical Decision Making 10/27/18 08:46 67 yo female with extensive PMH as above, presents with complaint of repeated falls. Was seen in ED yesterday for similar complaint. Imaging was negative and patient was discharged. She presents today for another mechanical fall and states she hit her head this time. Based on today's complaints will order Head CT, Cervical spine CT, left hip and left wrist plain film. 10/27/18 12:[address], cervical spine CT negative for fracture/bleed/any acute pathology. Left hip Radiograph with known chronic changes however no acute changes or new fractures. Left wrist plain film without fracture or subluxation. Discussed with social work repeated falls. States she will send out for VNS referral. At this point patient is safe for discharge from ER back to her assisted living facility. *DC/Admit/Observation/Transfer Diagnosis at time of Disposition: Fall - Discharge Dispostion Disposition: HOME Condition at time of disposition: Stable Decision to Admit order: No - Referrals Referrals: Antonio Fay MD [Primary Care Provider] - - Patient Instructions Printed Discharge Instructions: How to Prevent Falls Additional Instructions: You were seen in the emergency room following a mechanical fall. You had a head CT, cervical spine CT, a hip and wrist Xray, all of which were negative for any fractures or acute problems. Your case was discussed with the social services technician who will send out a referral for Visiting nursing services who can help you and hopefully prevent further falls. At this point you are medically safe for discharge back to your assisted living facility. You were given your morning medications here today in the ER. you should continue all of your home medications as they were prescribed by your doctor. You should follow up with your doctor in one week. If you have any further falls or any concerning symptoms, you should be evaluated by your doctor or return to the emergency department. - Post Discharge Activity
[2018-10-27] MEDS ORDERED: rOPINIRole HCL 2 MG TABLET (FP) PO ONE (09:30)
--- NOTE | 2018-10-27 09:44 | PDOC ---
Attending Attestation - Resident Resident Name: Darci Lawton - ED Attending Attestation I have performed the following: I have examined & evaluated the patient, The case was reviewed & discussed with the resident, I agree w/resident's findings & plan, Exceptions are as noted - HPI HPI: 10/27/18 09:42 67 F with h/o hypothyroidism, restless leg, anxiety, RA, presenting to ED for fall. Pt notes she was rolling her wheelchair when she fell forward onto her head. Denies LOC. Pt denies any lightheadedness or dizziness preceding the fall. Denies CP/SOB. Pt notes chronic L hip pain that is slightly worse than baseline. Pt was seen here yesterday for similar complaint and had negative imaging. She notes that her L wrist hurts from the fall yesterday and continues to bother her today. She is unsure of whether she landed on it today. - Physicial Exam PE: 10/27/18 09:44 "GENERAL: Awake, alert, and fully oriented, in no acute distress. HEAD: No signs of trauma EYES: PERRLA, EOMI, sclera anicteric, conjunctiva clear ENT: Auricles normal inspection, hearing grossly normal, nares patent, oropharynx clear without exudates. Moist mucosa NECK: Nontender, no stepoffs, Normal ROM, supple, no lymphadenopathy, JVD, or masses LUNGS: Breath sounds equal, clear to auscultation bilaterally. No wheezes, and no crackles HEART: Regular rate and rhythm, normal S1 and S2, no murmurs, rubs or gallops ABDOMEN: Soft, nontender, normoactive bowel sounds. No guarding, no rebound. No masses EXTREMITIES: Normal range of motion, no edema. No clubbing or cyanosis. No cords, erythema, or tenderness NEUROLOGICAL: Cranial nerves II through XII intact. 5/5 strength and sensation in all extremities SKIN: Warm, Dry, normal turgor, no rashes or lesions noted. - Medical Decision Making 10/27/18 09:45 67 F with mechanical fall out of wheelchair. + headstrike, though no evidence of head trauma on exam. - CT head/c-spine - XR L hip - XR L wrist 10/27/18 12:04 Imaging all negative Pt seen by YANELY, who has set up VNS for her Pt is well appearing, with normal vitals. Clinically stable for DC at this time. I discussed the physical exam findings, ancillary test results and final diagnoses with the patient. I answered all of the patient's questions. The patient was satisfied with the care received and felt comfortable with the discharge plan and treatment plan. The patient agrees to follow up with the primary care physician within 24-72 hours.
[2018-10-27] MEDS ORDERED: SERTRALINE HCL 50 MG TABLET (FP) PO ONE (10:23)
[2018-10-27] MEDS ORDERED: FUROSEMIDE 20 MG TABLET (FP) PO ONE (10:24)
[2018-10-27] MEDS ORDERED: NADOLOL 40 MG TABLET (FP) PO ONE (10:24)
== END 2018-10-27 13:31 | disposition home or self-care (01) ==
LOC: JER 08:07
DX: S09.8XXA Other specified injuries of head, initial encounter (principal); W05.0XXA Fall from non-moving wheelchair, initial encounter; Y92.098 Other place in other non-institutional residence as the place of occurrence of the external cause; R29.6 Repeated falls; E03.9 Hypothyroidism, unspecified; F41.8 Other specified anxiety disorders; F32.9 Major depressive disorder, single episode, unspecified; G25.81 Restless legs syndrome
CPT/HCPCS: 70450-TC; 72125-TC; 73110-TC-LT-FY; 73130-TC-LT-FY; 73523-TC-FY; 99281-25

== ENCOUNTER 2019-01-19 12:40 | Emergency (ER) | payer OTHER ==
[2019-01-19 13:03] VITALS: BP 108/60; PULSE 58; TEMP 97.7; BMI 17.9
[2019-01-19] MEDS ORDERED: IBUPROFEN 400 MG TABLET (FP) PO ONE ×2 (13:33→13:37)
--- NOTE | 2019-01-19 13:39 | PDOC ---
History of Present Illness - General Chief Complaint: Pain Stated Complaint: HAND PAIN Time Seen by Provider: 01/19/19 13:15 History Source: Patient Exam Limitations: No Limitations - History of Present Illness Initial Comments: 01/19/19 13:36 Complaints of right arm pain and numbness to her hand. States fell asleep leaning on her arm against the wall and when she woke up her hand. He has had this happen to her before and was told was a syndrome. Explained this to her health care providers at the assisted-living and requested to come to emergency department for evaluation. Denies fever, denies any falls, has taken no medication for relief of same but reports that she had inability to move her hands at the time she's gradually returning Severity: reports: mild Pain Location: reports: upper extremity (pain and numbness to right arm- states ) Method of Injury: Yes: unknown Loss of Consciousness: no loss of consciousness Associated Symptoms (Fall): denies symptoms Past History - Travel Traveled outside of the country in the last 30 days: No Close contact w/someone who was outside of country & ill: No - Past Medical History Allergies/Adverse Reactions: Allergies Allergy/AdvReac Type Severity Reaction Status Date / Time omeprazole AdvReac Verified 01/19/19 12:58 Penicillins AdvReac Verified 01/19/19 12:58 Home Medications: Ambulatory Orders Dexlansoprazole [Dexilant -] 60 mg PO DAILY PRN 03/19/14 Furosemide [Lasix -] 10 mg PO DAILY 03/19/14 Levothyroxine [Synthroid -] 150 mcg PO AC 03/19/14 Ropinirole HCl [Requip Xl] 8 mg PO AC 03/19/14 Aspirin [ASA -] 81 mg PO DAILY 09/12/18 Bacitracin - [Bacitracin Topical Ointment -] 1 applic TP BID 09/12/18 Fluticasone/Salmeterol [Advair 250-50 Diskus] 1 each IH BID 09/12/18 Lorazepam [Ativan] 1 mg PO Q6H PRN 09/12/18 Nadolol [Corgard -] 40 mg PO DAILY 09/12/18 Oxycodone HCl/Acetaminophen [Oxycodone-Acetaminophen 10-325] 1 tab PO Q6H PRN Ropinirole HCl [Requip -] 2 mg PO QID 09/12/18 Albuterol Sulfate Inhaler - [Ventolin Hfa Inhaler -] 1 - 2 inh PO Q4H 10/26/18 Ammonium Lactate Cream [Lac-Hydrin 12% *Cream*] 1 applic TP DAILY 10/26/18 Diphenhydramine HCl [Benadryl -] 25 mg PO Q8H PRN 10/26/18 Docusate Sodium [Colace -] 300 mg PO HS 10/26/18 Sertraline HCl [Zoloft -] 50 mg PO DAILY 10/26/18 COPD: Yes GI Disorders: Yes (GERD) Thyroid Disease: Yes (HYPOTHYROIDISM) - Surgical History Orthopedic Surgery: Yes (L. Shoulder) - Immunization History Immunization Up to Date: Yes - Suicide/Smoking/Psychosocial Hx Smoking Status: Yes Smoking History: Current every day smoker Have you smoked in the past 12 months: No Number of Cigarettes Smoked Daily: 10 Information on smoking cessation initiated: No 'Breaking Loose' booklet given: 04/17/14 Hx Alcohol Use: No Drug/Substance Use Hx: No Trauma Specific PMHX - Complaint Specific PMHX Arthritis: No Back Injury: No Review of Systems - Review of Systems Able to Perform ROS?: Yes Is the patient limited Andorran proficient: Yes Constitutional: Yes: Symptoms Reported, See HPI, Malaise. No: Chills, Fever HEENTM: Yes: See HPI. No: Symptoms Reported Musculoskeletal: Yes: Symptoms Reported, See HPI, Muscle Pain Integumentary: Yes: See HPI. No: Symptoms Reported Neurological: Yes: Symptoms reported, See HPI, Numbness All Other Systems: Reviewed and Negative *Physical Exam - Vital Signs Last Vital Signs Temp Pulse Resp BP Pulse Ox 97.7 F 58 L 14 108/60 100 01/19/19 12:58 01/19/19 12:58 01/19/19 12:58 01/19/19 12:58 01/19/19 12:58 - Physical Exam General Appearance: Yes: Nourished, Appropriately Dressed, Apparent Distress, Mild Distress HEENT: positive: KAYLENE, Normal ENT Inspection, TMs Normal, Pharynx Normal Neck: positive: Supple. negative: Tender Respiratory/Chest: positive: Lungs Clear Gastrointestinal/Abdominal: positive: Soft Musculoskeletal: positive: Normal Inspection. negative: CVA Tenderness Extremity: positive: Normal Capillary Refill, Normal Inspection, Normal Range of Motion (she has flexion and extension to all fingers, with distraction we'll remove glasses, and moved here. No evidence of capacity or weakness.) Integumentary: positive: Normal Color, Dry, Warm, Pale Neurologic: positive: cafe cook II-XII NML intact, Fully Oriented, Alert, Normal Mood/ Affect, Normal Response Progress Note - Progress Note Progress Note: Patient has Monday paralysis resolving. Is moving arm, there is no evidence of significant pathology or neuropathy. We'll treat with ibuprofen and patient admits is ready for *DC/Admit/Observation/Transfer Diagnosis at time of Disposition: Monday paralysis Qualifiers: Laterality: right Qualified Code(s): G56.31 - Lesion of radial nerve, right upper limb - Discharge Dispostion Disposition: HOME Condition at time of disposition: Stable Decision to Admit order: No - Referrals Referrals: Antonio Fay MD [Primary Care Provider] - - Patient Instructions Printed Discharge Instructions: DI for Peripheral Neuropathy Additional Instructions: Rest, avoid heavy lifting or strenuous activity until symptoms resolve Avoid excessive leaning on arms to avoid recurrence of this problem May use Tylenol or ibuprofen for pain relief Follow-up with neurologist as needed - Post Discharge Activity
== END 2019-01-19 15:21 | disposition home or self-care (01) ==
LOC: JERFT 12:40 → JER 12:40 → JERFT 15:21
DX: G56.31 Lesion of radial nerve, right upper limb (principal); F17.210 Nicotine dependence, cigarettes, uncomplicated; J44.9 Chronic obstructive pulmonary disease, unspecified; K21.9 Gastro-esophageal reflux disease without esophagitis; E03.9 Hypothyroidism, unspecified
CPT/HCPCS: 99281-25

== ENCOUNTER 2019-01-21 02:27 | Emergency (ER) | payer OTHER ==
[2019-01-21 03:08] VITALS: BMI 17.9
--- NOTE | 2019-01-21 04:05 | PDOC ---
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 Pt states she fell asleep in her wheelchair without her seat belt attached and accidentally fell out, hit the back of her head with new MAYES and neck pain. Pt denies LOC, changes in vision, N/V/F/C, weakness or sensory changes on 1 side of her body, chest pain, SOB, abdominal pain, changes in bowel or bladder habits. Pt does admit to new right hip pain and right index finger pain along with worsening right lower leg swelling and calf tenderness. Past History - Past Medical History Allergies/Adverse Reactions: Allergies Allergy/AdvReac Type Severity Reaction Status Date / Time omeprazole AdvReac Verified 01/21/19 03:05 Penicillins AdvReac Verified 01/21/19 03:05 Home Medications: Ambulatory Orders Dexlansoprazole [Dexilant -] 60 mg PO DAILY PRN 03/19/14 Levothyroxine [Synthroid -] 150 mcg PO AC 03/19/14 Ropinirole HCl [Requip Xl] 8 mg PO AC 03/19/14 Aspirin [ASA -] 81 mg PO DAILY 09/12/18 Fluticasone/Salmeterol [Advair 250-50 Diskus] 1 each IH BID 09/12/18 Lorazepam [Ativan] 1 mg PO Q6H PRN 09/12/18 Nadolol [Corgard -] 40 mg PO DAILY 09/12/18 Oxycodone HCl/Acetaminophen [Oxycodone-Acetaminophen 10-325] 1 tab PO Q6H PRN Ropinirole HCl [Requip -] 2 mg PO QID 09/12/18 Albuterol Sulfate Inhaler - [Ventolin Hfa Inhaler -] 1 - 2 inh PO Q4H 10/26/18 Ammonium Lactate Cream [Lac-Hydrin 12% *Cream*] 1 applic TP DAILY 10/26/18 Diphenhydramine HCl [Benadryl -] 25 mg PO Q8H PRN 10/26/18 Docusate Sodium [Colace -] 300 mg PO HS 10/26/18 Sertraline HCl [Zoloft -] 50 mg PO DAILY 10/26/18 COPD: Yes GI Disorders: Yes (GERD) Thyroid Disease: Yes (HYPOTHYROIDISM) - Surgical History Orthopedic Surgery: Yes (L. Shoulder) - Immunization History Immunization Up to Date: Yes - Suicide/Smoking/Psychosocial Hx Smoking Status: Yes Smoking History: Never smoked Have you smoked in the past 12 months: No Number of Cigarettes Smoked Daily: 10 Information on smoking cessation initiated: No 'Breaking Loose' booklet given: 04/17/14 Hx Alcohol Use: No Drug/Substance Use Hx: No Review of Systems - Review of Systems Constitutional: No: Chills, Fever HEENTM: No: Blurred Vision, Double Vision Respiratory: No: Cough, Shortness of Breath Cardiac (ROS): Yes: Edema (right lower limb). No: Chest Pain ABD/GI: No: Constipated, Diarrhea, Nausea, Vomiting Musculoskeletal: Yes: Neck Pain (right sided), Other (right hip pain and right index finger pain). No: Back Pain Neurological: Yes: Headache. No: Numbness, Paresthesia, Weakness *Physical Exam - Vital Signs Last Vital Signs Temp Pulse Resp BP Pulse Ox 97.5 F L 70 18 119/53 L 100 01/21/19 02:35 01/21/19 02:35 01/21/19 02:35 01/21/19 02:35 01/21/19 02:35 - Physical Exam General Appearance: Yes: Nourished, Appropriately Dressed. No: Apparent Distress HEENT: positive: EOMI, KAYLENE, TMs Normal, Hearing Grossly Normal. negative: Photophobia Neck: positive: Supple. negative: Carotid bruit Respiratory/Chest: positive: Lungs Clear, Normal Breath Sounds. negative: Respiratory Distress, Crackles, Rales, Rhonchi, Stridor, Wheezing Cardiovascular: positive: Regular Rhythm, Regular Rate, S1, S2, Edema (right lower leg with calf tenderness). negative: JVD, Murmur Vascular Pulses: Dorsalis-Pedis (R): 4+, Doralis-Pedis (L): 4+ Gastrointestinal/Abdominal: positive: Flat, Soft. negative: Pulsatile Mass, Protuberent, Distended, Guarding, Rebound, Tenderness Musculoskeletal: positive: Other. negative: CVA Tenderness, Decreased Range of Motion Extremity: positive: Normal Capillary Refill, Normal Inspection. negative: Normal Range of Motion Integumentary: positive: Normal Color, Dry, Warm Neurologic: positive: Fully Oriented, Alert, Normal Mood/Affect, Normal Response , Motor Strength 5/5. 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 Pt states she fell asleep in her wheelchair without her seat belt attached and accidentally fell out, hit the back of her head with new MAYES and neck pain. Pt denies LOC, changes in vision, N/V/F/C, weakness or sensory changes on 1 side of her body, chest pain, SOB, abdominal pain, changes in bowel or bladder habits. Pt does admit to new right hip pain and right index finger pain along with worsening right lower leg swelling and calf tenderness. vitals wnl Unwitnessed fall with MAYES, neck pain, right hip pain and right hand pain Images ordered: head CT C spine CT right hip and pelvis right hand DDX INLT: stoke/bleed, fractures/dislocations, arrhythmia, infection Labs: CBC WNL CMP WNL trop negative Pt NAD, non toxic appearing, at baseline mentation and ADLs All images negative for acute changes, pending duplex right lower leg in the AM S/O to day team for further care *DC/Admit/Observation/Transfer Diagnosis at time of Disposition: Fall - Referrals Referrals: Antonio Fay MD [Primary Care Provider] - - Patient Instructions - Post Discharge Activity
--- NOTE | 2019-01-21 04:36 | PDOC ---
Attending Attestation - Resident Resident Name: Daniel Lyons - ED Attending Attestation I have performed the following: I have examined & evaluated the patient, The case was reviewed & discussed with the resident, I agree w/resident's findings & plan - HPI HPI: 01/21/19 04:34 Pt comes with fall from her wheelchair. She forgot to put her seatbelt on and she fell asleep in the wheelchair where she usually sleeps. States that she doesn't like the hospital bed that she was given at her assisted living facility. Pt has slight neck pain. We will CT scan her cspine and head. She has no other complaints. She has no fever or chills and she is completely A+Ox3 - Physicial Exam PE: 01/21/19 04:36 Pt has a right calf that is larger and more painful than the left calf. - Medical Decision Making 01/21/19 04:36 Pt will have labs and hydration and she will be sent for duplex of the calf in the AM. 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 FINDINGS: Multilevel moderate degenerative changes are noted with a degenerative anterolisthesis of C3 on C4. There is no fracture, subluxation, prevertebral soft tissue swelling or significant degenerative changes. Mild emphysema is noted. IMPRESSION: No fracture. 01/21/19 05:04 Patient Name: LARRY LUTZ THIS IS A PRELIMINARY REPORT FROM [facility]ACHINE OPERATOR DATE OF SERVICE: 2019-01-21 04:39:31 IMAGES: [id number] EXAM: HEAD CT WITHOUT CONTRAST HISTORY: Status post fall COMPARISON: None. FINDINGS: The ventricular system is midline and nondilated. The sulcal pattern is normal for the patient's age. Minimal small vessel ischemic changes are noted. There is no bleed, mass, extra-axial fluid collection or mass effect. No skull fracture or skull lesion is identified. The visualized paranasal sinuses and mastoid air cells are clear. IMPRESSION: No acute pathology. 01/21/19 05:05 Right hand XR is normal. 01/21/19 06:40 Hip XR same as old left hip osteonecrosis Heart Score/ECG Review - [place]: Normal - P and GA Delta Wave(s) Present: No WPW: No - ST and T Early Repolarization: No Non Specific ST-T Wave changes: No - ECG Impressions Normal ECG: Yes Non-specific ST Elevation: No Ischemic Changes: No Bradycardia: Yes Torsades lay Pointes: No WPW: No
[2019-01-21] MEDS ORDERED: FOLIC ACID INJECTION - 1 MG, THIAMINE HCL 100 MG, MULTIVIT INJECTION ADULT 10 ML in SOD... IVPB ONE (04:38)
[2019-01-21 04:39] LABS: BASO % 0.9 % (0-2.0); EOS % 5.1 % (0-4.5); HEMATOCRIT 32.3 % (32.4-45.2); HEMOGLOBIN 10.8 GM/dL (10.7-15.3); LYMPH % 23.4 % (8-40); MCH 30.7 pg (25.7-33.7); MCHC 33.4 g/dl (32.0-36.0); MEAN PLT VOLUME 7.2 fl (7.5-11.1); MONO % 7.7 % (3.8-10.2); NEUT % 62.9 % (42.8-82.8); PLATELET COUNT 245 K/MM3 (134-434); RBC 3.51 M/mm3 (3.60-5.2); RDW 13.6 % (11.6-15.6); WHITE BLOOD COUNT 6.5 K/mm3 (4.0-10.0)
[2019-01-21 05:05] LABS: ALBUMIN 3.4 g/dl (3.4-5.0); ALK PHOS 88 U/L (45-117); ANION GAP 5 MMOL/L (8-16); BILIRUBIN,TOTAL 0.2 mg/dL (0.2-1); BLOOD UREA NITROGEN 29 mg/dL (7-18); CALCIUM 8.7 mg/dL (8.5-10.1); CHLORIDE 101 mmol/L (98-107); CO2 31 mmol/L (21-32); CREATININE 1.1 mg/dL (0.55-1.3); GLUCOSE,RANDOM 89 mg/dL (74-106); POTASSIUM 3.9 mmol/L (3.5-5.1); SGOT/AST 12 U/L (15-37); SGPT/ALT 14 U/L (13-61); SODIUM 137 mmol/L (136-145); TOT PROT 6.8 g/dl (6.4-8.2)
--- NOTE | 2019-01-21 07:47 | PDOC ---
*Physical Exam - Vital Signs Last Vital Signs Temp Pulse Resp BP Pulse Ox 97.8 F 62 18 114/63 95 01/21/19 06:45 01/21/19 06:45 01/21/19 02:35 01/21/19 06:45 01/21/19 06:45 ED Treatment Course - LABORATORY CBC & Chemistry Diagram: 01/21/19 04:24 01/21/19 04:24 - ADDITIONAL ORDERS Additional order review: Laboratory Results 01/21/19 04:24 Sodium 137 Potassium 3.9 Chloride 101 Carbon Dioxide 31 Anion Gap 5 L BUN 29 H Creatinine 1.1 Est GFR (CKD-EPI)AfAm 60.16 Est GFR (CKD-EPI)NonAf 51.91 Random Glucose 89 Calcium 8.7 Total Bilirubin 0.2 AST 12 L ALT 14 Alkaline Phosphatase 88 Creatine Kinase 96 Troponin I < 0.02 Total Protein 6.8 Albumin 3.4 01/21/19 04:24 RBC 3.51 L MCV 92.0 MCHC 33.4 RDW 13.6 MPV 7.2 L Neutrophils % 62.9 Lymphocytes % 23.4 D Monocytes % 7.7 Eosinophils % 5.1 H Basophils % 0.9 Medical Decision Making - Medical Decision Making 01/21/19 07:22 Sign out received from Dr Lyons. Suzy Rodrigues is a 67yo woman with a PMH of hypothyroidism, MS, Ra, restless leg, anxiety who presented to the ED following an unwitnessed fall from her wheelchair. She reported no symptoms prior to the fall or LOC. She endorses hip pain, right 1st finger pain, and RLE swelling and calf tenderness. EC course notable for unremarkable labs. CT head, c-spine, xray hip/pelvis and xray Rt hand w/o acute changes. Duplex US RLE to be completed. 01/21/19 10:03 - DVT study negative - Spoke to Dr Fay via phone. Would like to see Ms Rodrigues in the office within the next few days. - Will d/c home back to SNF. Discussed with Dr Farooq. Viktoria Seaman PGY1 *DC/Admit/Observation/Transfer Diagnosis at time of Disposition: Fall - Discharge Dispostion Disposition: HOME Condition at time of disposition: Stable Decision to Admit order: No - Referrals Referrals: Antonio Fay MD [Primary Care Provider] - Shyam Casiano MD [Staff Physician] - - Patient Instructions Printed Discharge Instructions: How to Prevent Falls Additional Instructions: Discharge Instructions: You were seen in the ED for a fall overnight. You had a CT scan, xrays, and a leg ultrasound. There were no concerning abnormalities found. Please continue to take all of your regular medications. See the attached information on preventing falls in the future. Please make an appointment with Dr Fay within the next 2-3 days for follow up. Seek immediate medical care if you have any additional falls, lightheadedness, chest pain, difficulty breathing, or any other medical emergency. - Post Discharge Activity
--- NOTE | 2019-01-21 09:50 | EKG ---
Test Reason : Blood Pressure : / mmHG Vent. Rate : 058 BPM Atrial Rate : 058 BPM P-R Int : 166 ms QRS Dur : 088 ms QT Int : 432 ms P-R-T Axes : 079 026 063 degrees QTc Int : 424 ms SINUS BRADYCARDIA POSSIBLE ANTEROSEPTAL INFARCT (CITED ON OR BEFORE 22-JAN-2014) ABNORMAL ECG WHEN COMPARED WITH ECG OF 12-SEP-2018 08:52, NO SIGNIFICANT CHANGE WAS FOUND Confirmed by MARA OCAMPO, JULIO ([id number]) on 01/21/2019 9:50:39 AM Referred By: Confirmed By:JULIO TERRY MD
[2019-01-21 10:41] VITALS: BP 110/62; PULSE 82; TEMP 98.1
== END 2019-01-21 13:00 | disposition home or self-care (01) ==
LOC: JER 02:27
PROC: 3E033GC Introduction of Other Therapeutic Substance into Peripheral Vein, Percutaneous Approach (ICD-10-PCS; principal; 2019-01-21)
DX: W05.0XXA Fall from non-moving wheelchair, initial encounter (principal); Y93.84 Activity, sleeping; Y92.009 Unspecified place in unspecified non-institutional (private) residence as the place of occurrence of the external cause; E03.9 Hypothyroidism, unspecified; F41.9 Anxiety disorder, unspecified; M06.9 Rheumatoid arthritis, unspecified; G35 Multiple sclerosis; G25.81 Restless legs syndrome
CPT/HCPCS: 36415; 70450-TC; 72125-TC; 73130-TC-RT-FY; 73523-TC-FY; 80053; 82550; 84484; 85025; 93005; 93010; 93971-TC; 96365; 99283-25; J7030

== ENCOUNTER 2019-03-11 20:32 | Emergency (ER) | payer OTHER ==
[2019-03-11 21:03] VITALS: BP 116/84; PULSE 82; TEMP 97.7; BMI 15.2
--- NOTE | 2019-03-11 22:30 | PDOC ---
History of Present Illness - General Chief Complaint: Injury Stated Complaint: FALL Time Seen by Provider: 03/11/19 21:41 History Source: Patient Exam Limitations: No Limitations - History of Present Illness Initial Comments: 03/11/19 22:19 68 yo female pmh MRSA, depression, anxiety, self reported double vision, and DVT (on ASA no AC) here today from [facility] after an unwitnessed fall. Pt states she had all of her lower teeth removed today due to them rotting, was given "twilight" medication (does not know the exact medication, called assisted living facility, also not aware of medication) and states she became tired, fell asleep in her wheelchair and fell out of it since she was not wearing her seat belt. Pt denies CP, SOB, MAYES prior to or after fall , denies LOC, MAYES, weakness or sensory changes on 1 side of her body, N/V, changes in vision. Pt able to get up on her own and self reported the fall. Pt admits to lateral neck pain after the fall. Denies fever, chills. Denies chest pain, shortness of breath. Denies nausea, vomiting, diarrhea, abdominal pain. Past History - Past Medical History Allergies/Adverse Reactions: Allergies Allergy/AdvReac Type Severity Reaction Status Date / Time omeprazole AdvReac Verified 03/11/19 21:03 Penicillins AdvReac Verified 03/11/19 21:03 Home Medications: Ambulatory Orders Dexlansoprazole [Dexilant -] 60 mg PO DAILY PRN 03/19/14 Levothyroxine [Synthroid -] 150 mcg PO AC 03/19/14 Ropinirole HCl [Requip Xl] 8 mg PO AC 03/19/14 Aspirin [ASA -] 81 mg PO DAILY 09/12/18 Fluticasone/Salmeterol [Advair 250-50 Diskus] 1 each IH BID 09/12/18 Lorazepam [Ativan] 1 mg PO Q6H PRN 09/12/18 Nadolol [Corgard -] 40 mg PO DAILY 09/12/18 Oxycodone HCl/Acetaminophen [Oxycodone-Acetaminophen 10-325] 1 tab PO Q6H PRN Ropinirole HCl [Requip -] 2 mg PO QID 09/12/18 Albuterol Sulfate Inhaler - [Ventolin Hfa Inhaler -] 1 - 2 inh PO Q4H 10/26/18 Ammonium Lactate Cream [Lac-Hydrin 12% *Cream*] 1 applic TP DAILY 10/26/18 Diphenhydramine HCl [Benadryl -] 25 mg PO Q8H PRN 10/26/18 Docusate Sodium [Colace -] 300 mg PO HS 10/26/18 Sertraline HCl [Zoloft -] 50 mg PO DAILY 10/26/18 COPD: Yes GI Disorders: Yes (GERD) Thyroid Disease: Yes (HYPOTHYROIDISM) - Surgical History Orthopedic Surgery: Yes (L. Shoulder) - Immunization History Immunization Up to Date: Yes - Suicide/Smoking/Psychosocial Hx Smoking Status: Yes Smoking History: Former smoker Have you smoked in the past 12 months: No Number of Cigarettes Smoked Daily: 10 Information on smoking cessation initiated: No 'Breaking Loose' booklet given: 04/17/14 Hx Alcohol Use: No Drug/Substance Use Hx: No Review of Systems - Review of Systems Constitutional: No: Chills, Fever HEENTM: No: Blurred Vision Respiratory: No: Shortness of Breath Cardiac (ROS): No: Chest Pain, Edema, Palpitations ABD/GI: No: Constipated, Diarrhea, Nausea, Vomiting : No: Burning, Dysuria, Flank Pain, Hematuria Musculoskeletal: No: Back Pain Integumentary: No: Change in Color Neurological: No: Headache, Numbness, Tingling, Weakness, Ataxia, Dizziness *Physical Exam - Vital Signs Last Vital Signs Temp Pulse Resp BP Pulse Ox 97.7 F 82 16 116/84 96 03/11/19 20:32 03/11/19 20:32 03/11/19 20:32 03/11/19 20:32 03/11/19 20:32 - Physical Exam General Appearance: Yes: Nourished, Appropriately Dressed. No: Apparent Distress HEENT: positive: EOMI, KAYLENE, Normal Voice, Hearing Grossly Normal Neck: positive: Supple. negative: Carotid bruit Respiratory/Chest: positive: Lungs Clear, Normal Breath Sounds. negative: Accessory Muscle Use, Rapid RR, Crackles, Rales, Rhonchi, Stridor, Wheezing Cardiovascular: positive: Regular Rhythm, Regular Rate, S1, S2. negative: Edema , JVD, Murmur Vascular Pulses: Dorsalis-Pedis (R): 3+, Doralis-Pedis (L): 3+ Gastrointestinal/Abdominal: positive: Flat, Soft. negative: Pulsatile Mass, Distended, Guarding, Rebound, Tenderness Musculoskeletal: negative: CVA Tenderness Extremity: positive: Normal Capillary Refill, Normal Inspection, Normal Range of Motion Integumentary: positive: Normal Color, Dry, Warm Neurologic: positive: rhic systems safety engineer II-XII NML intact, Fully Oriented, Alert, Normal Mood/ Affect, Normal Response, Motor Strength 5/5. negative: Facial Droop, Numbness, Sensory Deficit, Finger to Nose (normal), Confused, Disoriented Medical Decision Making - Medical Decision Making 68 yo female pmh MRSA, depression, anxiety, self reported double vision, and DVT (on ASA no AC) here today from [facility] after an unwitnessed fall. Pt states she had all of her lower teeth removed today due to them rotting, was given "twilight" medication (does not know the exact medication, called assisted living facility, also not aware of medication) and states she became tired, fell asleep in her wheelchair and fell out of it since she was not wearing her seat belt. Pt denies CP, SOB, MAYES prior to or after fall , denies LOC, MAYES, weakness or sensory changes on 1 side of her body, N/V, changes in vision. Pt able to get up on her own and self reported the fall. Pt admits to lateral neck pain after the fall. Denies fever, chills. Denies chest pain, shortness of breath. Denies nausea, vomiting, diarrhea, abdominal pain. Vitals WNL Head and C spine CT ordered CT imaging neg for acute bleed, fractures or subluxation Pt safe for DC home Pt understands DC plan, given strict return precautions for potential progressing brain bleed *DC/Admit/Observation/Transfer Diagnosis at time of Disposition: Fall - Discharge Dispostion Disposition: HOME Condition at time of disposition: Fair Decision to Admit order: No - Referrals - Patient Instructions Printed Discharge Instructions: How to Prevent Falls Additional Instructions: Please see your primary doctor within the next 48 hours. Return to the ER immediately for new or concerning symptoms including but not limited to: headaches, changes in vision, weakness on 1 side of your body, confusion, dizziness. You may require a repeat head CT if these symptoms occur. Continue taking your home dosed medications as prescribed. Thank you - Post Discharge Activity
[2019-03-12] MEDS ORDERED: rOPINIRole HCL 3 MG TABLET PO ONE (00:15)
--- NOTE | 2019-03-12 02:00 | PDOC ---
Documentation entered by Michael Washington SCRIBE, acting as scribe for Zaida Castaneda MD. Zaida Castaneda MD: This documentation has been prepared by the Felix fraser Daniel, SCRIBE, under my direction and personally reviewed by me in its entirety. I confirm that the documentation accurately reflects all work, treatment, procedures, and medical decision making performed by me. Attending Attestation - Resident Resident Name: Daniel Lyons - ED Attending Attestation I have performed the following: I have examined & evaluated the patient, The case was reviewed & discussed with the resident, I agree w/resident's findings & plan, Exceptions are as noted - HPI HPI: 03/11/19 22:52 The patient is a 68 year old female with a past medical history of MRSA, depression, anxiety, self reported double vision, and DVT here today from [facility] for evaluation of fall. The patient reports that she was sitting in her wheelchair when she fell asleep and slipped out. She reports getting herself up and called the supervisor sleeping bag department at the facility. She notes neck pain with movement. Patient denies headache, lightheadedness. Denies fever, chills. Denies chest pain, shortness of breath. Denies nausea, vomiting, diarrhea, abdominal pain. Allergies: omeprazole, penicillins - Physicial Exam PE: 03/12/19 00:11 68 yo female fell out of her wheelchair today. She did get herself up and call for staff. She states she fell sideways and hit her head 03/12/19 00:12 thin 68 yo female seated on gurney in no acute distress head no scalp laceration, no facial ecchymosis Oral exam: she had recent dental extractions of all her remaining mandibular teeth, no active bleeding neck no bruits lungs cta b/l cvs [id number] abd flat,nontender extremities she states she has chronic L shoulder pain,she is able to raise her L arm and fully extend it. she has a superficial abrasion on her Rt knee skin warm and dry neuro axox3,moving all her limbs - Medical Decision Making 03/12/19 00:56 ct scan of the head : no acute intracranial pathology ct scan c spine: no fracture,no subluxation 03/12/19 01:59 pt will be discharged back to her facility
--- NOTE | 2019-03-12 13:54 | EKG ---
Test Reason : Blood Pressure : / mmHG Vent. Rate : 056 BPM Atrial Rate : 056 BPM P-R Int : 164 ms QRS Dur : 068 ms QT Int : 430 ms P-R-T Axes : 079 030 054 degrees QTc Int : 414 ms POOR DATA QUALITY, INTERPRETATION MAY BE ADVERSELY AFFECTED SINUS BRADYCARDIA SEPTAL INFARCT (CITED ON OR BEFORE 22-JAN-2014) ABNORMAL ECG WHEN COMPARED WITH ECG OF 21-JAN-2019 03:58, NO SIGNIFICANT CHANGE WAS FOUND Confirmed by MD KARYNA, JETHRO ([id number]) on 03/12/2019 1:54:24 PM Referred By: Confirmed By:JETHRO TRONCOSO MD
[2019-03-12] MEDS ORDERED: rOPINIRole HCL 3 MG TABLET PO SCH (22:00)
== END 2019-03-12 02:44 | disposition home or self-care (01) ==
LOC: JER 20:32
DX: M54.2 Cervicalgia (principal); W05.0XXA Fall from non-moving wheelchair, initial encounter; Y93.89 Activity, other specified; Y92.128 Other place in nursing home as the place of occurrence of the external cause; Y99.8 Other external cause status; F41.9 Anxiety disorder, unspecified; F32.9 Major depressive disorder, single episode, unspecified; Z86.718 Personal history of other venous thrombosis and embolism; Z79.82 Long term (current) use of aspirin; J44.9 Chronic obstructive pulmonary disease, unspecified; E03.9 Hypothyroidism, unspecified; K21.9 Gastro-esophageal reflux disease without esophagitis
CPT/HCPCS: 70450-TC; 72125-TC; 93005; 93010; 99281-25